=== PATIENT | female | born 1970 | race Caucasian/White ===

== ENCOUNTER → 2016-09-07 | Outpatient (CLI) | payer BC ==
[~2016-09-07] MED LIST: BENZ-22 PO; CEFD300C PO
[2016-09-07 13:32] VITALS: BP 111/71
--- NOTE | 2016-09-07 13:32 | Urgent Care T Sheet Gen (E) ---
Intake General Temperature (Fahrenheit): 100.5 Pulse: 100 Blood Pressure Systolic: 111 Blood Pressure Diastolic: 71 Respirations: 20 SPO2: 95 Description of Symptoms Patient presents with illness for over a week. Last week was exposed to influenza B. Illness started as nasal congestion, PND, ST and productive cough. Fever and aches started on Sunday. Chest feels congested and tight. Cough throughout the day but is worse at night. Fever up to 101. Been treating symptoms with ibuprofen, Tylenol, and Mucinex DM. Respiratory Constitutional Symptoms: Fever Malaise EENTM: Nose Congestion Throat pain Respiratory: Cough Short of breathNo Wheezing Cardiovascular: No symptoms reported Gastrointestinal/Abdominal: No symptoms reported All Other Systems Reviewed Remaining Systems: All other systems reviewed with negative findings Physical Exam Physical Exam General Appearance: WD/WN No apparent distress Eyes, Ears, Nose, Throat Ex: TMs normal Pharyngeal erythema (cobblestone appearance with PND) Other (red, swollen nasal turbinates with purulent drainage ) Neck Exam: SuppleNo Lymphadenopathy Respiratory Exam: Lungs clear Normal breath sounds Cardiovascular Exam: Regular rate, rhythm Departure Urgent Care Impression Impression: Primary Impression: Sinusitis Qualified Code: J01.00 - Acute maxillary sinusitis, unspecified Additional Impression: Cough Departure Disposition: HOME OR SELF-CARE Condition: Stable Referrals: YAMINI ARMANDO MD (PCP) Additional Instructions: I believe the patient's cough is due to her sinus infection and resultant PND. Her lungs were clear. I have started her on Cefdinir for treatment. I have also prescribed Tessalon pearls for daytime use and Robitussin AC 10ml po qhs prn cough for nighttime use. Rest. Fluids May DC cold meds. Return as needed Patient understands DC instructions. All questions Scripts Benzonatate (Tessalon Perles)100 Mg [id number] Mg PO TID PRN COUGH #20 CAP Prov:PEÑA BARRON 09/07/16 Cefdinir 300 Mg [id number] Mg PO BID #14 CAP Prov:PEÑA BARRON 09/07/16 End of report . PEÑA BARRON Sep 07, 2016 13:32
== END ==
LOC: MHUC 13:05
PROVIDERS: ATTEND Physician Assistant
DX: J01.00 Acute maxillary sinusitis, unspecified (principal); R05 Cough
CPT/HCPCS: 99213